=== PATIENT | male | born 1990 | race Caucasian/White ===

== ENCOUNTER 2020-08-15 23:18 | Emergency (ER) | payer OTHER ==
[2020-08-16] MEDS ORDERED: IBUPROFEN600 MG PO (00:29)
== END 2020-08-16 00:45 | disposition home or self-care (01) ==
LOC: ER1 23:18
DX: S93.401A Sprain of unspecified ligament of right ankle, initial encounter (principal); W22.8XXA Striking against or struck by other objects, initial encounter
CPT/HCPCS: 73610; 73630; 99283